=== PATIENT | male | born 1970 | race Caucasian/White ===

== ENCOUNTER 2022-02-24 21:54 | Outpatient (REF) | payer OTHER, SELFPAY ==
[2022-02-24 21:20] LABS: Hemoglobin A1C 5.5 % (<5.7)
[2022-02-24 21:24] LABS: ALT 35 U/L (16-63); AST 19 U/L (15-37); Albumin 3.9 g/dL (3.4-5.0); Alkaline Phosphatase 84 U/L (46-116); Anion Gap 9.1 mmol/L (3-11); BUN 17 mg/dL (7-18); Bilirubin, Total 0.2 mg/dL (0.2-1.0); CO2 27.9 mmol/L (21.0-32.0); CREATININE 1.2 mg/dL (0.70-1.30); Calcium 9.3 mg/dL (8.5-10.1); Calculated LDL 188 mg/dL (<100); Chloride 103 mmol/L (98-107); Cholesterol 300 mg/dL (<200); Estimated GFR 74.13 (mL/min/1.73m2); Glucose 95 mg/dL (74-106); HDL Cholesterol 36 mg/dL (40-60); Potassium 4.1 mmol/L (3.5-5.1); Sodium 140 mmol/L (136-145); Total Protein 8.2 g/dL (6.4-8.2); Triglyceride 384 mg/dL (<150)
== END 2022-02-24 21:55 | disposition home or self-care (01) ==
LOC: NCHCN 21:54
PROVIDERS: PCP Nurse Practitioner Family; Visit Provider Nurse Practitioner Family
DX: Z00.00 Encounter for general adult medical examination without abnormal findings (principal)
CPT/HCPCS: 80053; 80061; 83036

== ENCOUNTER 2023-05-20 22:19 | Outpatient (REF) | payer BC, SELFPAY ==
[2023-05-20 18:07] LABS: Abs Immature Grans 0.02 10^3/uL (0.0-0.06); Absolute Basophil Count 0.03 10^3/uL (0.0-0.2); Absolute Eosinophil Count 0.08 10^3/uL (0.0-0.7); Absolute Lymphocyte Count 1.83 10^3/uL (1.2-3.4); Absolute Monocyte Count 0.65 10^3/uL (0.1-0.8); Absolute Neutrophil Count 4.22 10^3/uL (1.2-6.7); Basophils % 0.4; Eosinophils % 1.2; HCT 48.5 % (40.0-50.0); HGB 15.9 g/dL (13.5-17.5); Immature Grans % 0.3; Lymphocytes % 26.8; MCH 30.3 pg (27.0-33.0); MCHC 32.8 % (32.0-36.0); MCV 92 fL (80-95); MPV 8.9 fL (8.0-11.0); Monocytes % 9.5; Neutrophils % 61.8; Platelet Count 423 10^3/uL (130-400); RBC 5.25 10^6/uL (4.36-5.78); RDW 11.8 % (11.8-14.1); RDW-SD 40.4 fL; WBC 6.83 10^3/uL (4.4-10.8)
[2023-05-20 18:21] LABS: ALT 38 U/L (16-63); AST 33 U/L (15-37); Albumin 3.8 g/dL (3.4-5.0); Alkaline Phosphatase 87 U/L (46-116); Anion Gap 12.4 mmol/L (3-11); BUN 22 mg/dL (7-18); Bilirubin, Total 0.3 mg/dL (0.2-1.0); CO2 22.6 mmol/L (21.0-32.0); CREATININE 1.1 mg/dL (0.70-1.30); Calcium 9.4 mg/dL (8.5-10.1); Calculated LDL 213 mg/dL (<100); Chloride 104 mmol/L (98-107); Cholesterol 285 mg/dL (<200); Estimated GFR 81.78 (mL/min/1.73m2); Glucose 85 mg/dL (74-106); HDL Cholesterol 45 mg/dL (40-60); Potassium 4.5 mmol/L (3.5-5.1); Sodium 139 mmol/L (136-145); Total Protein 8.2 g/dL (6.4-8.2); Triglyceride 136 mg/dL (<150)
== END 2023-05-20 22:20 | disposition home or self-care (01) ==
LOC: NCHCN 22:19
PROVIDERS: PCP Nurse Practitioner Family; Visit Provider Nurse Practitioner Family
DX: E78.5 Hyperlipidemia, unspecified (principal); G40.909 Epilepsy, unspecified, not intractable, without status epilepticus
CPT/HCPCS: 80053; 80061; 85025

== ENCOUNTER 2023-07-23 09:00 | Outpatient (REF) | payer BC, SELFPAY ==
[2023-07-23 14:58] LABS: Hemoglobin A1C 5.3 % (<5.7)
== END 2023-07-23 09:01 | disposition home or self-care (01) ==
LOC: NCHCN 09:00
PROVIDERS: PCP Nurse Practitioner Family; Visit Provider Nurse Practitioner Family
DX: E66.9 Obesity, unspecified (principal)
CPT/HCPCS: 83036

== ENCOUNTER 2024-05-22 09:08 | Outpatient (REF) | payer BC, SELFPAY ==
[2024-05-22 14:37] LABS: HCT 50.6 % (40.0-50.0); HGB 16.7 g/dL (13.5-17.5); MCH 30.3 pg (27.0-33.0); MCV 92 fL (80-95); Platelet Count 374 10^3/uL (130-400); RBC 5.51 10^6/uL (4.36-5.78); RDW 11.5 % (11.8-14.1); RDW-SD 38.9 fL; WBC 8.25 10^3/uL (4.4-10.8)
[2024-05-22 14:53] LABS: ALT 39 U/L (16-63); AST 25 U/L (15-37); Albumin 4.2 g/dL (3.4-5.0); Alkaline Phosphatase 113 U/L (46-116); Anion Gap 8.8 mmol/L (3-11); BUN 17 mg/dL (7-18); Bilirubin, Total 0.34 mg/dL (0.2-1.0); CO2 26.2 mmol/L (21.0-32.0); CREATININE 1.3 mg/dL (0.70-1.30); Calcium 9.5 mg/dL (8.5-10.1); Calculated LDL 150 mg/dL (<100); Chloride 107 mmol/L (98-107); Cholesterol 234 mg/dL (<200); Glucose 96 mg/dL (74-106); HDL Cholesterol 52 mg/dL (40-60); Potassium 4.5 mmol/L (3.5-5.1); Sodium 142 mmol/L (136-145); Total Protein 8.7 g/dL (6.4-8.2); Triglyceride 162 mg/dL (<150)
[2024-05-22 15:04] LABS: Hemoglobin A1C 5.5 % (<5.7)
== END 2024-05-22 09:09 | disposition home or self-care (01) ==
LOC: NCHCN 09:08
PROVIDERS: PCP Nurse Practitioner Family; Visit Provider Nurse Practitioner Family
DX: G40.909 Epilepsy, unspecified, not intractable, without status epilepticus (principal); E78.5 Hyperlipidemia, unspecified; E66.9 Obesity, unspecified
CPT/HCPCS: 80053; 80061; 85027; 83036

== ENCOUNTER 2025-05-28 09:22 | Outpatient (REF) | payer OTHER, SELFPAY ==
[2025-05-28 15:44] LABS: HCT 49.2 % (40.0-50.0); HGB 15.7 g/dL (13.5-17.5); MCH 29.6 pg (27.0-33.0); MCHC 31.9 % (32.0-36.0); MCV 93 fL (80-95); MPV 9.4 fL (8.0-11.0); Platelet Count 233 10^3/uL (130-400); RBC 5.31 10^6/uL (4.36-5.78); RDW 11.7 % (11.8-14.1); RDW-SD 40.3 fL; WBC 6.52 10^3/uL (4.4-10.8)
[2025-05-28 16:04] LABS: ALT 41 U/L (10-49); AST 27 U/L (<34); Albumin 5.2 g/dL (3.2-5.0); Alkaline Phosphatase 110 U/L (46-116); Anion Gap 8.3 mmol/L (3-11); BUN 14 mg/dL (9-23); Bilirubin, Total 0.4 mg/dL (0.2-1.2); CO2 26.7 mmol/L (20.0-31.0); Calcium 10.1 mg/dL (8.3-10.6); Chloride 108 mmol/L (98-107); Cholesterol 324 mg/dL (<200); Glucose 87 mg/dL (74-106); HDL Cholesterol 47 mg/dL (>or=40); Potassium 4.7 mmol/L (3.5-5.1); Sodium 143 mmol/L (136-145); Total Protein 8.9 g/dL (5.7-8.2)
[2025-05-28 16:06] LABS: TSH 1.98 uIU/mL (0.55-4.78)
[2025-05-28 18:15] LABS: Hemoglobin A1C 5.3 % (<5.7)
[2025-05-29 10:58] LABS: Hepatitis C Ab w Rflx HCV PCR Negative (Negative)
== END 2025-05-28 09:23 | disposition home or self-care (01) ==
LOC: NCHCN 09:22
PROVIDERS: PCP Nurse Practitioner Family; Visit Provider Nurse Practitioner Family
DX: E78.5 Hyperlipidemia, unspecified (principal); Z13.29 Encounter for screening for other suspected endocrine disorder; Z11.59 Encounter for screening for other viral diseases; Z13.0 Encounter for screening for diseases of the blood and blood-forming organs and certain disorders involving the immune mechanism; E66.9 Obesity, unspecified
CPT/HCPCS: 80053; 80061; 85027; 86803; 83036; 84443